=== PATIENT | female | born 1970 | race Caucasian/White ===

== ENCOUNTER 2017-03-08 08:30 | Outpatient (CLI) | payer OTHER ==
--- NOTE | 2017-03-08 12:19 | NM ---
RADIONUCLIDE PARATHYROID SCAN: HISTORY: Hypercalcemia. COMPARISON: 09/09/14. FINDINGS: One hour images show physiologic uptake of radiotracer throughout the thyroid gland and salivary glan ds. No abnormal areas of increased uptake are apparent. Delayed images show good washout of radiotr acer from the thyroid gland. No mediastinal abnormalities are apparent. Uptake is incidentally noted at the right axilla within a lymph node related to the injection. IMPRESSION: No scintigraphic evidence of parathyroid adenoma. POS: [id number]
== END 2017-03-08 08:31 | disposition home or self-care (01) ==
LOC: NM 08:30
PROVIDERS: ATTEND Otolaryngology Plastic Surgery within the Head & Neck
DX: E21.0 Primary hyperparathyroidism (principal)
CPT/HCPCS: 78072; A9500